=== PATIENT | female | born 1990 | race Caucasian/White ===

== ENCOUNTER 2019-02-16 14:17 | Outpatient (CLI) | payer OTHER ==
[~2019-02-16] VITALS: Ht 160 cm; Wt 82.2 kg
[2019-02-16 14:24] VITALS: BP 116/69
[2019-02-16 14:57] LABS: MICROSCOPIC INDICATED
[2019-02-16 14:58] LABS: CULTURE INDICATED? YES
== END 2019-02-16 15:45 | disposition home or self-care (01) ==
LOC: LDOP 14:17 → MERGE 14:17 → LDOP 15:45
PROVIDERS: ATTEND Obstetrics & Gynecology
DX: O26.892 Other specified pregnancy related conditions, second trimester (principal); M54.5 Low back pain; R10.31 Right lower quadrant pain; Z3A.27 27 weeks gestation of pregnancy
CPT/HCPCS: 81001; 87086; 99201; G0463

== ENCOUNTER 2019-05-12 10:01 | Inpatient (IN) | payer OTHER ==
[~2019-05-12] VITALS: Ht 160 cm; Wt 88.6 kg
[2019-05-12 10:17] VITALS: BP 118/80
[2019-05-12] MEDS ORDERED: OXYTOCIN 30U/ 0.9% NaCL 500ML 500 ML IV ONE (11:22)
[2019-05-12] MEDS ORDERED: D5%-LACTATED RINGERS 1,000 ML IV SCH (11:22)
[2019-05-12] MEDS ORDERED: OXYTOCIN 30U/ 0.9% NaCL 500ML 500 ML ONE (11:26)
[2019-05-12] MEDS ORDERED: NEWBORN KIT ONE (11:26)
[2019-05-12] MEDS ORDERED: MISOPROSTOL 200 MCG TABLET ONE (11:26)
[2019-05-12] MEDS ORDERED: LIDOCAINE 1%, 20ML ONE (11:27)
[2019-05-12] MEDS ORDERED: TERBUTALINE 1 MG/ML, 1ML SQ PRN (11:30)
[2019-05-12] MEDS ORDERED: FENTANYL PF 100 MCG/2ML IVPush PRN (11:30)
[2019-05-12] MEDS ORDERED: SODIUM CITRATE/CITRIC ACID 30 ML UDC PO PRN (11:30)
[2019-05-12] MEDS ORDERED: ONDANSETRON 2MG/ML, 2ML IVPush PRN (11:30)
[2019-05-12] MEDS ORDERED: FENTANYL PF 100 MCG/2ML IV PRN (11:30)
[2019-05-12] MEDS ORDERED: TERBUTALINE 1 MG/ML, 1ML IVPush PRN (11:30)
[2019-05-12] MEDS ORDERED: SODIUM CHLORIDE FLUSH 10ML SYR IVF PRN (11:30)
[2019-05-12] MEDS ORDERED: METOCLOPRAMIDE 5 MG/ML, 2ML IVPush PRN (11:30)
[2019-05-12] MEDS: LACTATED RINGERS 1,000 ML IV SCH ×3 (11:45→23:31)
[2019-05-12] MEDS: VANCOMYCIN PMX 1GM/200ML 200 ML IVPB SCH ×2 (11:46→23:32)
[2019-05-12 12:08] LABS: BASOPHILS # (AUTO) 0.03 x10^3/uL (0-0.1); BASOPHILS % (AUTO) 0 % (0-1); EOSINOPHILS # (AUTO) 0.11 x10^3/uL (0-0.4); EOSINOPHILS % (AUTO) 1 % (1-7); LYMPHOCYTES % (AUTO) 24 % (22-44); MD NO; MEAN CORPUSCULAR HEMOGLOBIN 32.4 pg (27.0-34.8); MEAN CORPUSCULAR HGB CONC 34.6 g/dL (32.4-35.8); MEAN CORPUSCULAR VOLUME 93.7 fL (80-100); MEAN PLATELET VOLUME 10.4 fL (7.4-10.4); MONOCYTES # (AUTO) 0.57 x10^3/uL (0.2-0.8); MONOCYTES % (AUTO) 5 % (2-9); NEUTROPHILS # (AUTO) 7.43 x10^3/uL (1.8-6.8); NEUTROPHILS % (AUTO) 69 % (42-75); PLATELET COUNT 162 x10^3/uL (130-400); RED BLOOD COUNT 4.24 x10^6/uL (3.82-5.3); RED CELL DISTRIBUTION WIDTH 13.4 % (9.6-15.2)
[2019-05-12] MEDS ORDERED: OXYTOCIN 30U/ 0.9% NaCL 500ML 500 ML IV PRN (22:27)
[2019-05-12] MEDS ORDERED: ONDANSETRON 2MG/ML, 2ML ONE (22:47)
[2019-05-12] MEDS ORDERED: FENTANYL/BUPIV./NS/PF 250 ML EPIDCONT SCH ×2 (22:58→23:31)
[2019-05-12] MEDS ORDERED: FENTANYL/BUPIV./NS/PF 250 ML EPIDCONT ONE (23:00)
[2019-05-12] MEDS ORDERED: BUPIVACAINE 0.25% ONE ×2 (23:06→23:54)
[2019-05-12] MEDS ORDERED: FENTANYL PF 100 MCG/2ML ONE (23:15)
[2019-05-13] MEDS ORDERED: LACTATED RINGERS 1,000 ML IVBOLUS PRN
[2019-05-13] MEDS ORDERED: EPHEDRINE 50 MG/ML, 1ML IVPush PRN
[2019-05-13] MEDS ORDERED: BUPIVACAINE/PF 0.5% ONE ×2 (00:31→02:58)
[2019-05-13] MEDS ORDERED: FENTANYL PF 100 MCG/2ML ONE ×3 (00:31→11:09)
[2019-05-13] MEDS: LACTATED RINGERS 1,000 ML IV SCH ×3 (04:00→15:02)
[2019-05-13] MEDS ORDERED: METOCLOPRAMIDE 5 MG/ML, 2ML ONE (06:07)
[2019-05-13 08:52] LABS: ALANINE AMINOTRANSFERASE 37 U/L (12-78); ALBUMIN 2.6 g/dL (3.4-5.0); ANION GAP 13 mmol/L (5-15); CALCIUM 9.2 mg/dL (8.5-10.1); CHLORIDE 105 mmol/L (98-107); CREATININE 1.75 mg/dL (0.55-1.02)
[2019-05-13 08:54] LABS: ALKALINE PHOSPHATASE 157 U/L (45-117); BILIRUBIN,TOTAL 0.5 mg/dL (0.2-1.0); TOTAL PROTEIN 6.5 g/dL (6.4-8.2)
[2019-05-13] MEDS ORDERED: LIDOCAINE/MPF 2%-EPI 1:200K, 20 ML ONE (10:19)
[2019-05-13] MEDS ORDERED: SODIUM CITRATE/CITRIC ACID 30 ML UDC ONE (10:29)
[2019-05-13] MEDS ORDERED: CLINDAMYCIN PMX 900MG/50ML 50 ML ONE (10:49)
[2019-05-13] MEDS ORDERED: MAGNESIUM SULF. PMX 20GM/500ML 500 ML IV PRN (10:58)
[2019-05-13] MEDS ORDERED: CLINDAMYCIN PMX 900MG/50ML 50 ML IV ONE (11:00)
[2019-05-13] MEDS ORDERED: GENTAMICIN PER PHARMACY MC PRN (11:00)
[2019-05-13] MEDS ORDERED: MAGNESIUM SULFATE PMX 4GM/100M 100 ML IVPB ONE (11:00)
[2019-05-13] MEDS ORDERED: AZITHROMYCIN 500 MG in SODIUM CHLORIDE 0.9% 250 ML IV ONE (11:00)
[2019-05-13] MEDS ORDERED: SODIUM CHLORIDE 0.9% IV ONE (11:00)
[2019-05-13] MEDS ORDERED: GENTAMICIN IV ONE (11:00)
[2019-05-13] MEDS ORDERED: morphine SULFATE/PF 0.5 MG/ML, 10ML ONE (11:09)
[2019-05-13] MEDS ORDERED: ONDANSETRON 2MG/ML, 2ML ONE (11:25)
[2019-05-13] MEDS ORDERED: OXYTOCIN 10 UNITS/ML, 1ML ONE ×2 (11:25→11:35)
[2019-05-13] MEDS ORDERED: KETOROLAC 30 MG/1 ML ONE (11:25)
[2019-05-13] MEDS ORDERED: DEXAMETHASONE 4 MG/ML, 1ML ONE (11:25)
[2019-05-13] MEDS ORDERED: WATER-INJECTION,STERILE 10 ML IV ONE (11:29)
[2019-05-13] MEDS ORDERED: PHENYLEPHRINE 10 MG/ML ONE (11:29)
[2019-05-13] MEDS ORDERED: MAGNESIUM SULF. PMX 20GM/500ML 500 ML IV ONE ×2 (12:21→20:21)
[2019-05-13] MEDS ORDERED: LACTATED RINGERS 1,000 ML IV SCH (15:02)
[2019-05-13] MEDS ORDERED: OXYTOCIN 30U/ 0.9% NaCL 500ML 500 ML IV SCH (15:02)
[2019-05-13] MEDS ORDERED: OXYcodone IR 5MG TABLET ONE ×3 (15:12→22:55)
[2019-05-13] MEDS: OXYcodone IR 5MG TABLET PO PRN ×3 (15:14→22:57)
[2019-05-13] MEDS ORDERED: morphine SULFATE 10 MG/ML, 1ML IV PRN (15:30)
[2019-05-13] MEDS ORDERED: SIMETHICONE 80 MG CHEW TAB PO PRN (15:30)
[2019-05-13] MEDS ORDERED: OXYcodone IR 5MG TABLET PO PRN (15:30)
[2019-05-13] MEDS ORDERED: ONDANSETRON 2MG/ML, 2ML IV PRN (15:30)
[2019-05-13] MEDS ORDERED: MISOPROSTOL 200 MCG TABLET PR PRN (15:30)
[2019-05-13] MEDS ORDERED: MORPHINE SULFATE 4 MG/ML, 1ML IVPush PRN (15:30)
[2019-05-13] MEDS ORDERED: ACETAMINOPHEN 325 MG TABLET ONE ×3 (16:59→22:59)
[2019-05-13] MEDS: ACETAMINOPHEN 325 MG TABLET PO PRN ×2 (17:00→22:58)
[2019-05-13] MEDS ORDERED: OXYTOCIN 30U/ 0.9% NaCL 500ML 500 ML ONE (22:56)
[2019-05-14] MEDS: LACTATED RINGERS 1,000 ML IV SCH ×3 (01:02→21:02)
[2019-05-14] MEDS ORDERED: HYDROcodone/APAP 5/325 TABLET ONE ×2 (03:12→11:22)
[2019-05-14] MEDS ORDERED: ACETAMINOPHEN 325 MG TABLET ONE (03:13)
[2019-05-14] MEDS: HYDROcodone/APAP 5/325 TABLET PO PRN ×2 (03:15→11:29)
[2019-05-14] MEDS ORDERED: ACETAMINOPHEN 325 MG TABLET PO SCH (03:30)
[2019-05-14 06:15] LABS: ANION GAP 6 mmol/L (5-15); CALCIUM 7.4 mg/dL (8.5-10.1); CHLORIDE 107 mmol/L (98-107); CREATININE 1.13 mg/dL (0.55-1.02)
[2019-05-14 06:16] LABS: ALANINE AMINOTRANSFERASE 32 U/L (12-78)
[2019-05-14 06:18] LABS: ALKALINE PHOSPHATASE 108 U/L (45-117); BILIRUBIN,TOTAL 0.2 mg/dL (0.2-1.0); TOTAL PROTEIN 5.3 g/dL (6.4-8.2)
[2019-05-14] MEDS: PRENATAL VIT/IRON/FA 1 EACH TABLET PO SCH (09:00)
[2019-05-14 14:54] LABS: MEAN CORPUSCULAR HEMOGLOBIN 32.2 pg (27.0-34.8); MEAN CORPUSCULAR HGB CONC 33.9 g/dL (32.4-35.8); MEAN CORPUSCULAR VOLUME 94.9 fL (80-100); MEAN PLATELET VOLUME 9.3 fL (7.4-10.4); PLATELET COUNT 144 x10^3/uL (130-400); RED BLOOD COUNT 3.58 x10^6/uL (3.82-5.3); RED CELL DISTRIBUTION WIDTH 13.6 % (9.6-15.2)
[2019-05-14 15:01] LABS: ALANINE AMINOTRANSFERASE 29 U/L (12-78); ALBUMIN 1.9 g/dL (3.4-5.0); ANION GAP 5 mmol/L (5-15); CALCIUM 7.1 mg/dL (8.5-10.1); CHLORIDE 108 mmol/L (98-107); CREATININE 0.97 mg/dL (0.55-1.02)
[2019-05-14 15:03] LABS: ALKALINE PHOSPHATASE 105 U/L (45-117); BILIRUBIN,TOTAL 0.2 mg/dL (0.2-1.0); TOTAL PROTEIN 5.4 g/dL (6.4-8.2)
[2019-05-14 15:22] LABS: BASOPHILS # (AUTO) 0.04 x10^3/uL (0-0.1); BASOPHILS % (AUTO) 0 % (0-1); EOSINOPHILS # (AUTO) 0.02 x10^3/uL (0-0.4); EOSINOPHILS % (AUTO) 0 % (1-7); LYMPHOCYTES # (AUTO) 2.23 x10^3/uL (1-3.4); LYMPHOCYTES % (AUTO) 16 % (22-44); MD SCAN; MONOCYTES # (AUTO) 0.72 x10^3/uL (0.2-0.8); MONOCYTES % (AUTO) 5 % (2-9); NEUTROPHILS % (AUTO) 78 % (42-75)
[2019-05-14] MEDS ORDERED: OXYcodone/APAP 5/325MG TABLET ONE (15:28)
[2019-05-14] MEDS ORDERED: OXYcodone/APAP 5/325MG TABLET PO PRN (15:30)
[2019-05-14 17:37] VITALS: BP 123/95
[2019-05-14 20:00] VITALS: BP 127/90
[2019-05-14] MEDS: DOCUSATE 100 MG CAPSULE PO PRN (20:19)
[2019-05-14] MEDS: OXYcodone/APAP 5/325MG TABLET PO PRN (20:29)
[2019-05-15] VITALS (7 sets, daily range): BP systolic 116–141; BP diastolic 75–90
[2019-05-15] MEDS: OXYcodone/APAP 5/325MG TABLET PO PRN ×6 (00:25→20:37)
[2019-05-15] MEDS: LACTATED RINGERS 1,000 ML IV SCH ×2 (07:02→17:02)
[2019-05-15] MEDS: DOCUSATE 100 MG CAPSULE PO PRN ×2 (08:26→20:36)
[2019-05-15] MEDS: PRENATAL VIT/IRON/FA 1 EACH TABLET PO SCH (08:26)
[2019-05-15 08:39] LABS: ALANINE AMINOTRANSFERASE 27 U/L (12-78); ALBUMIN 1.7 g/dL (3.4-5.0); ANION GAP 5 mmol/L (5-15); CALCIUM 7.4 mg/dL (8.5-10.1); CHLORIDE 111 mmol/L (98-107); CREATININE 0.88 mg/dL (0.55-1.02)
[2019-05-15 08:41] LABS: ALKALINE PHOSPHATASE 104 U/L (45-117); BILIRUBIN,TOTAL 0.2 mg/dL (0.2-1.0)
[2019-05-15] MEDS: IBUPROFEN 600 MG TABLET PO PRN ×2 (14:29→20:36)
[2019-05-15 18:58] LABS: BASOPHILS # (AUTO) 0.05 x10^3/uL (0-0.1); BASOPHILS % (AUTO) 0 % (0-1); EOSINOPHILS # (AUTO) 0.05 x10^3/uL (0-0.4); EOSINOPHILS % (AUTO) 1 % (1-7); LYMPHOCYTES # (AUTO) 3.14 x10^3/uL (1-3.4); LYMPHOCYTES % (AUTO) 26 % (22-44); MD NO; MEAN CORPUSCULAR HEMOGLOBIN 32.3 pg (27.0-34.8); MEAN CORPUSCULAR HGB CONC 33.8 g/dL (32.4-35.8); MEAN CORPUSCULAR VOLUME 95.5 fL (80-100); MEAN PLATELET VOLUME 8.8 fL (7.4-10.4); MONOCYTES # (AUTO) 0.69 x10^3/uL (0.2-0.8); MONOCYTES % (AUTO) 6 % (2-9); NEUTROPHILS # (AUTO) 8.31 x10^3/uL (1.8-6.8); NEUTROPHILS % (AUTO) 68 % (42-75); PLATELET COUNT 168 x10^3/uL (130-400); RED BLOOD COUNT 3.59 x10^6/uL (3.82-5.3)
[2019-05-15 19:06] LABS: ALANINE AMINOTRANSFERASE 25 U/L (12-78); ALBUMIN 1.8 g/dL (3.4-5.0); ANION GAP 8 mmol/L (5-15); CALCIUM 8.3 mg/dL (8.5-10.1); CHLORIDE 109 mmol/L (98-107); CREATININE 0.79 mg/dL (0.55-1.02)
[2019-05-15 19:17] LABS: ALKALINE PHOSPHATASE 111 U/L (45-117); BILIRUBIN,TOTAL 0.2 mg/dL (0.2-1.0); TOTAL PROTEIN 5.7 g/dL (6.4-8.2)
[2019-05-15 19:57] LABS: FREE T4 (FREE THYROXINE) 0.98 ng/dL (0.76-1.46)
[2019-05-16] MEDS: OXYcodone/APAP 5/325MG TABLET PO PRN ×5 (01:27→18:35)
[2019-05-16] MEDS: LACTATED RINGERS 1,000 ML IV SCH ×2 (03:02→13:02)
[2019-05-16 03:25] VITALS: BP 143/97
[2019-05-16] MEDS: IBUPROFEN 600 MG TABLET PO PRN ×3 (03:26→17:43)
[2019-05-16] MEDS ORDERED: LEVOTHYROXINE 100 MCG TABLET PO SCH (06:00)
[2019-05-16 07:10] VITALS: BP 147/81
[2019-05-16] MEDS: PRENATAL VIT/IRON/FA 1 EACH TABLET PO SCH (09:43)
[2019-05-16] MEDS: DOCUSATE 100 MG CAPSULE PO PRN (09:43)
[2019-05-16 12:05] VITALS: BP 141/94
[2019-05-16] MEDS ORDERED: IBUP-1222 PO (15:19)
[2019-05-16] MEDS ORDERED: OXYC-302 PO (15:20)
[2019-05-16] MEDS ORDERED: DOCU100C33 PO (15:20)
[2019-05-16] MEDS ORDERED: LEVO50TA5 PO (15:22)
[2019-05-16] MEDS ORDERED: PREN1TAB98 PO (15:23)
[2019-05-16] MEDS ORDERED: MEASLES,MUMPS&RUBELLA VACC/PF 0.5 ML SQ-VACC ONE (17:00)
== END 2019-05-16 19:25 | disposition home or self-care (01) | DRG 787 ==
LOC: LDOP 10:01 → LDIP 11:29 → 2NW 05-14 15:39
PROVIDERS: ADMIT Obstetrics & Gynecology; ATTEND Obstetrics & Gynecology
PROC: 10D00Z1 Extraction of Products of Conception, Low, Open Approach (ICD-10-PCS; principal; 2019-05-13)
DX: O62.1 Secondary uterine inertia (principal); O63.9 Long labor, unspecified; O99.824 Streptococcus B carrier state complicating childbirth; E03.9 Hypothyroidism, unspecified; G89.18 Other acute postprocedural pain; O14.14 Severe pre-eclampsia complicating childbirth; O99.284 Endocrine, nutritional and metabolic diseases complicating childbirth; Z37.0 Single live birth; Z3A.39 39 weeks gestation of pregnancy; Z81.8 Family history of other mental and behavioral disorders; Z83.3 Family history of diabetes mellitus; Z88.6 Allergy status to analgesic agent; Z88.0 Allergy status to penicillin
CPT/HCPCS: 36415; 80053; 82570; 83735; 84156; 84439; 84443; 84481; 84550; 85025; 86592; 86780; 86850; 86900; G0378; J1100; J1885; J2274; J2405; J3010; J3370; J3490; J2370; J2590; J2765; J3475; J7120